=== PATIENT | male | born 1985 | race Two or more races ===

== ENCOUNTER 2019-02-08 16:18 | Emergency (ER) | payer OTHER ==
[~2019-02-08] VITALS: Ht 180.3 cm; Wt 104.3 kg
[2019-02-08] MEDS ORDERED: NKM (16:24)
[2019-02-08 16:40] VITALS: BP 117/76
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
[2019-02-08] MEDS ORDERED: HYDROcodone/Acetamin 5/325 tab ORAL ONE (16:45)
--- NOTE | 2019-02-08 16:52 | Diagnostic Imaging Report ---
Indication: Right wrist pain Findings: 3 views of the right wrist were obtained. No acute fractures, malalignment, erosions or periostitis are identified. Mild lateral soft tissue swelling noted. Impression: No acute findings.
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
[2019-02-08] MEDS ORDERED: IBUPROFEN600 MG ORAL (17:24)
[2019-02-08 17:38] VITALS: BP 117/76
--- NOTE | 2019-02-08 17:39 | NUR ---
ER DISCHARGE NOTE:splint placed on right hand Patient is cleared to be discharged per ERMD, pt is aox4, on room air, with stable vital signs. pt was given dc and prescription instructions, pt was able to verbalize understanding, pt is able to ambulate with steady gait. pt took all belongings.
== END 2019-02-08 17:48 | disposition home or self-care (01) ==
LOC: EMR 16:52
DX: S60.211A Contusion of right wrist, initial encounter (principal); S60.221A Contusion of right hand, initial encounter; V03.10XA Pedestrian on foot injured in collision with car, pick-up truck or van in traffic accident, initial encounter; Y92.410 Unspecified street and highway as the place of occurrence of the external cause
CPT/HCPCS: 29125; 99283